=== PATIENT | male | born 2000 | race Caucasian/White ===

== ENCOUNTER 2024-03-30 02:34 | Emergency (ER) | payer BC ==
[2024-03-30] MEDS: Lidocaine 1% with EPINEPHrine 1:100,000 20 ML MDV INJECT ONE (03:48)
[2024-03-30] MEDS: Bacitracin Oint 1 GM U/D Packet TOP ONE (03:48)
== END 2024-03-30 03:49 | disposition home or self-care (01) ==
LOC: JP.ED 02:34
DX: S61.011A Laceration without foreign body of right thumb without damage to nail, initial encounter (principal); W26.0XXA Contact with knife, initial encounter
CPT/HCPCS: 12001; 99282